=== PATIENT | male | born 1960 | race Caucasian/White ===

== ENCOUNTER 2018-04-02 11:36 | Emergency (ER) | payer BC ==
--- NOTE | 2018-04-02 14:16 | EDM.PDOCBH ---
ED HPI GENERAL MEDICAL PROBLEM - General Chief Complaint: Behavioral/Psych Stated Complaint: LAW ENFORCEMENT Time Seen by Provider: 04/02/18 11:50 Source of Information: Reports: Patient, RN Notes Reviewed History Limitations: Reports: No Limitations - History of Present Illness INITIAL COMMENTS - FREE TEXT/NARRATIVE: Patient is a 57 year old male who presents to the ED via [facility]. for a mental health check. The patient states that he has been depressed for quite a while now. He states that he has been on antidepressant medication, but ran out a few weeks ago, so he stopped taking it as he felt it was not working for him anyway. He was seeing Flora Watts at the [facility]. He states that this morning, him and his had an argument and before he left the house he stated " I'm leaving and if anything happens to me it will be your fault." He left the house in the vehicle. The Appliance Mechanic found him in a grove a trees, stuck in a tree row. He told her that she "should just leave him alone and let him freeze." The patient relates that over the last 4 years, him and his have had money issues. 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 He is feeling a lot of stress right now due to fights with his , and the money troubles. He denies hearing voices or seeing things that are not there. - Related Data Allergies Allergy/AdvReac Type Severity Reaction Status Date / Time No Known Allergies Allergy Verified 04/02/18 11:41 Past Medical History HEENT History: Reports: Impaired Vision Cardiovascular History: Reports: Hypertension Gastrointestinal History: Reports: Gastritis Genitourinary History: Reports: Renal Calculus Musculoskeletal History: Reports: Gout Psychiatric History: Reports: Anxiety, Depression, Suicidal Ideation - Past Surgical History GI Surgical History: Reports: Hernia Repair/Other Musculoskeletal Surgical History: Reports: Amputation Social & Family History - Family History Family Medical History: Noncontributory - Tobacco Use Smoking Status *Q: Never Smoker - Caffeine Use Caffeine Use: Reports: Coffee - Recreational Drug Use Recreational Drug Use: No ED ROS GENERAL - Review of Systems Review Of Systems: See Below Constitutional: Reports: No Symptoms HEENT: Reports: No Symptoms Respiratory: Reports: No Symptoms Cardiovascular: Reports: No Symptoms Endocrine: Reports: No Symptoms GI/Abdominal: Reports: No Symptoms : Reports: No Symptoms Musculoskeletal: Reports: No Symptoms Skin: Reports: No Symptoms Neurological: Reports: No Symptoms Psychiatric: Reports: Depression. Denies: Agitation, Anxiety, Hallucinations, Homicidal Ideation, Mood Lability, Suicidal Ideation Hematologic/Lymphatic: Reports: No Symptoms Immunologic: Reports: No Symptoms ED EXAM, BEHAVIORAL HEALTH - Physical Exam Exam: See Below Exam Limited By: No Limitations General Appearance: Alert, WD/WN, Mild Distress (pt is curled up in bed and laying on left side) Ears: Normal External Exam, Normal TMs Nose: Normal Inspection Throat/Mouth: Normal Inspection, Normal Oropharynx Head: Atraumatic, Normocephalic Neck: Normal Inspection Respiratory/Chest: No Respiratory Distress, Lungs Clear, Normal Breath Sounds, No Accessory Muscle Use, Chest Non-Tender Cardiovascular: Normal Peripheral Pulses, Regular Rate, Rhythm, No Murmur GI/Abdominal: Normal Bowel Sounds, Soft, Non-Tender, No Distention Extremities: Normal Inspection, Normal Capillary Refill Neurological: Alert, Normal Cognition, Normal Reflexes, Oriented x 3 Psychiatric: Alert, Normal Cognition, Oriented, Depressed Mood, Flat Affect, Tearful. No: Restless, Agitated, Uncooperative, Withdrawn, Homicidal Thoughts, Advent Delusions, Suicidal Plan, Suicidal Thoughts, Auditory Hallucinations, Visual Hallucinations, Threatening Behavior Skin Exam: Warm, Dry, Intact, Normal color, No rash EKG INTERPRETATION EKG Date: 04/02/18 Time: 12:03 Rhythm: NSR Rate (Beats/Min): 65 [place]: Normal P-Wave: Present QRS: Normal ST-T: Normal QT: Normal EKG Interpretation Comments: Reviewed with Dr. Nails COURSE, BEHAVIORAL HEALTH COMP - Course Vital Signs: Last Vital Signs Temp 98.6 F 04/02/18 11:41 Pulse 96 04/02/18 11:41 Resp 20 04/02/18 11:41 BP 146/84 H 04/02/18 11:41 Pulse Ox 98 04/02/18 11:41 Orders, Labs, Meds: Active Orders 24 hr Category Date Time Status EKG Documentation Completion [RC] STAT Care 04/02/18 11:59 Active Medical Clearance: 04/02/18 14:16 Pt presents to the ED for the evaluation of a mental health check. Upon talking with the patient I do not believe that what he said to his was intentional , and that he has no true intention to harm himself. I did consult Glendy rAroyo, our social problems specialist and she did visit with the patient and requested that [facility] take on his case. Nora from [facility] was in to see the patient and states that she gave him and his the crisis number in case he would need to talk to someone urgently. He does have a scheduled appointment on Sunday for evaluation through [facility]. He does not want to re-start any anti-depressive medications, but his was offered to him. The and patient feel safe enough to take him home today. It was Glendy's and Nora's impression that he is safe to go home with the plan discussed above. I also agree with them. Departure - Departure Time of Disposition: 14:22 Disposition: Home, Self-Care 01 Condition: Fair Clinical Impression: Mental and behavioral problem in adult - Discharge Information *PRESCRIPTION DRUG MONITORING PROGRAM REVIEWED*: No *COPY OF PRESCRIPTION DRUG MONITORING REPORT IN PATIENT BORIS: No Instructions: Suicidal Feelings: How to Help Yourself Referrals: PCP,None [Primary Care Provider] - Forms: ED Department Discharge Additional Instructions: You have been evaluated in the ED for a mental health check. You have an appointment with [facility] at 1pm on Sunday04-08-18. Please keep this appointment for follow-up for further management. You have been given the crisis number for [facility], please call this at anytime of the day to talk with someone. Please don't hesitate to return to the ED if your symptoms change or worsen. - My Orders Last 24 Hours: My Active Orders 04/02/18 11:59 EKG Documentation Completion [RC] STAT - Assessment/Plan Last 24 Hours: My Active Orders 04/02/18 11:59 EKG Documentation Completion [RC] STAT
== END 2018-04-02 14:36 | disposition home or self-care (01) ==
LOC: JD.ED 11:36
DX: F98.9 Unspecified behavioral and emotional disorders with onset usually occurring in childhood and adolescence (principal); F99 Mental disorder, not otherwise specified; I10 Essential (primary) hypertension
CPT/HCPCS: 93005; 93010; 99283; 99285-25

== ENCOUNTER 2023-04-01 11:01 | Emergency (ER) | payer BC ==
[2023-04-01 11:26] LABS: BASOPHILS ABSOLUTE AUTO 0.1 K/mm3 (0.0-0.2); BASOPHILS PERCENT AUTO 0.6 % (0.0-1.0); EOSINOPHILS ABSOLUTE AUTO 0.1 K/mm3 (0.0-0.4); EOSINOPHILS PERCENT AUTO 0.7 % (0.0-6.0); HEMATOCRIT 45.1 % (42.0-52.0); HEMOGLOBIN 16.5 gm/dl (14.0-18.0); IMMATURE GRAN ABSOLUTE AUTO 0.05 K/mm3 (0.00-0.05); IMMATURE GRAN PERCENT AUTO 0.5 % (0.0-0.4); LYMPHOCYTES ABSOLUTE AUTO 0.7 K/mm3 (1.0-4.8); LYMPHOCYTES PERCENT AUTO 6.3 % (24.0-44.0); MEAN CORPUSCULAR HEMOGLOBIN 34.8 pg (28.0-32.0); MEAN CORPUSCULAR HGB CONC 36.6 g/dl (32.0-36.0); MEAN CORPUSCULAR VOLUME 95.1 fl (83.0-99.0); MEAN PLATELET VOLUME 9.3 fl (9.4-12.4); MONOCYTES ABSOLUTE AUTO 0.8 K/mm3 (0.0-0.8); MONOCYTES PERCENT AUTO 7.8 % (0.0-8.0); NEUTROPHILS ABSOLUTE AUTO 8.8 K/mm3 (1.8-7.7); NEUTROPHILS PERCENT AUTO 84.1 % (41.0-71.0); PLATELET COUNT,PLT 229 K/mm3 (150-400); RED BLOOD CELL COUNT 4.74 M/mm3 (4.52-5.90); WHITE BLOOD CELL COUNT,WBC 10.46 K/mm3 (3.9-11.3)
[2023-04-01] MEDS: Aspirin 81 MG Tab.Chew PO ONE (11:29)
[2023-04-01] MEDS: Metoprolol Tartrate 5 MG/5 ML SDV ONE (11:30)
[2023-04-01] MEDS: Metoprolol Tartrate 2.5 MG in Sodium Chloride 0.9% 50 ML IV ONE (11:30)
[2023-04-01] MEDS: Metoprolol Tartrate 5 MG/5 ML SDV IVPUSH ONE (11:31)
[2023-04-01] MEDS: Sodium Chloride 0.9% 10 ML Syringe FLUSH PRN (11:35)
[2023-04-01 12:03] LABS: INFLUENZA A NAA NEGATIVE (NEGATIVE)
[2023-04-01 12:09] LABS: ALBUMIN 4.2 g/dl (3.4-5.0); ANION GAP 19.8 (5-15); BILIRUBIN TOTAL 1.2 mg/dL (0.2-1.0); BUN/CREATININE RATIO 13.8 (14-18); CALCIUM 9.1 mg/dL (8.5-10.1); CREATININE 1.3 mg/dL (0.7-1.3); EST CRCL DRUG DOSING (CG) 57.41 mL/min; POTASSIUM,K 3.8 mEq/L (3.5-5.1); PROTEIN TOTAL,TP 8.5 g/dl (6.4-8.2)
[2023-04-01 12:54] LABS: D-DIMER QUANTITATIVE 0.47 mg/L (0.19-0.50); INR 0.99; PROTHROMBIN TIME 10.6 SECONDS (9.7-12.0)
[2023-04-01] MEDS: Metoclopramide 10 MG/2 ML SDV IVPUSH ONE (13:42)
[2023-04-01] MEDS: Alum Hydrox/Mag Hydrox/Simeth 30 ML, Lidocaine 2% 15 ML PO ONE (13:43)
== END 2023-04-01 15:33 | disposition home or self-care (01) ==
LOC: JD.ED 11:01
DX: R07.9 Chest pain, unspecified (principal); I10 Essential (primary) hypertension; Z79.82 Long term (current) use of aspirin
CPT/HCPCS: 36415; 71045; 74176; 80053; 83690; 83880; 84484; 85025; 85379; 85610; 87502; 93005; 96374; 96375; 99285; A9270; J2765; J3490

== ENCOUNTER 2024-03-15 23:47 | Emergency (ER) | payer BC, MEDICARE ==
[2024-03-16] MEDS ORDERED: Sodium Chloride 0.9% 10 ML Syringe FLUSH PRN
[2024-03-16] MEDS: Ondansetron 4 MG/2 ML SDV IVPUSH ONE (00:07)
[2024-03-16] MEDS: Ketorolac 30 MG/ML SDV IVPUSH ONE (00:07)
[2024-03-16] MEDS: HYDROmorphone 0.5 MG/0.5 ML Syringe IVPUSH ONE (00:07)
[2024-03-16] MEDS: Sodium Chloride 0.9% 1,000 ML IV SCH (00:13)
[2024-03-16 00:15] LABS: BASOPHILS ABSOLUTE AUTO 0.1 K/mm3 (0.0-0.2); BASOPHILS PERCENT AUTO 0.5 % (0.0-1.0); EOSINOPHILS ABSOLUTE AUTO 0.3 K/mm3 (0.0-0.4); EOSINOPHILS PERCENT AUTO 2.3 % (0.0-6.0); HEMATOCRIT 41.9 % (42.0-52.0); HEMOGLOBIN 14.9 gm/dl (14.0-18.0); IMMATURE GRAN ABSOLUTE AUTO 0.07 K/mm3 (0.00-0.05); IMMATURE GRAN PERCENT AUTO 0.7 % (0.0-0.4); LYMPHOCYTES ABSOLUTE AUTO 1.2 K/mm3 (1.0-4.8); LYMPHOCYTES PERCENT AUTO 11.3 % (24.0-44.0); MEAN CORPUSCULAR HEMOGLOBIN 33.8 pg (28.0-32.0); MEAN CORPUSCULAR HGB CONC 35.6 g/dl (32.0-36.0); MEAN PLATELET VOLUME 9.6 fl (9.4-12.4); MONOCYTES ABSOLUTE AUTO 0.9 K/mm3 (0.0-0.8); NEUTROPHILS ABSOLUTE AUTO 8.3 K/mm3 (1.8-7.7); NEUTROPHILS PERCENT AUTO 77.2 % (41.0-71.0); PLATELET COUNT,PLT 209 K/mm3 (150-400); RED BLOOD CELL COUNT 4.41 M/mm3 (4.52-5.90); WHITE BLOOD CELL COUNT,WBC 10.68 K/mm3 (3.9-11.3)
[2024-03-16 00:41] LABS: A/G RATIO 0.9 (1-2); ALBUMIN 3.6 g/dl (3.4-5.0); ANION GAP 14.2 (5-15); BILIRUBIN TOTAL 0.7 mg/dL (0.2-1.0); BUN/CREATININE RATIO 13.1 (14-18); CALCIUM 8.7 mg/dL (8.5-10.1); CREATININE 1.6 mg/dL (0.7-1.3); EST CRCL DRUG DOSING (CG) 47.53 mL/min; POTASSIUM,K 4.2 mEq/L (3.5-5.1); PROTEIN TOTAL,TP 7.6 g/dl (6.4-8.2)
[2024-03-16 01:19] LABS: APPEARANCE,URINE SLT CLOUDY (Clear); BILIRUBIN,URINE NEGATIVE (Negative); COLOR,URINE YELLOW (Yellow); GLUCOSE,URINE NEGATIVE (Negative); KETONES,URINE NEGATIVE (Negative); LEUKOCYTE ESTERASE,URINE NEGATIVE (Negative); NITRITE,URINE NEGATIVE (Negative); OCCULT BLOOD,URINE 3+ (Negative); PROTEIN,URINE 1+ (Negative); UROBILINOGEN,URINE 0.2 (0.2-1.0)
[2024-03-16 01:36] LABS: BACTERIA,URINE FEW /hpf (FEW); EPITHELIAL CELLS,URINE 0-5 /hpf (0-5); HYALINE CASTS,URINE 0-5 /lpf (0-5); MUCUS,URINE RARE /hpf (FEW); RBC,URINE >100 /hpf (0-5); WBC,URINE 0-5 /hpf (0-5)
== END 2024-03-16 01:40 | disposition home or self-care (01) ==
LOC: JD.ED 23:47
DX: N13.2 Hydronephrosis with renal and ureteral calculous obstruction (principal); I10 Essential (primary) hypertension; Z79.899 Other long term (current) drug therapy; Z86.16 Personal history of COVID-19
CPT/HCPCS: 36415; 74176; 80053; 81001; 83690; 85025; 96361; 96374; 96375; 99284; J1885; J2405; J7030

== ENCOUNTER 2024-04-21 22:09 | Emergency (ER) | payer MEDICARE ==
[2024-04-21 22:47] LABS: APPEARANCE,URINE CLEAR (Clear); BASOPHILS ABSOLUTE AUTO 0.1 K/mm3 (0.0-0.2); BASOPHILS PERCENT AUTO 0.4 % (0.0-1.0); BILIRUBIN,URINE NEGATIVE (Negative); COLOR,URINE YELLOW (Yellow); EOSINOPHILS ABSOLUTE AUTO 0.2 K/mm3 (0.0-0.4); EOSINOPHILS PERCENT AUTO 1.2 % (0.0-6.0); GLUCOSE,URINE NEGATIVE (Negative); HEMATOCRIT 39.5 % (42.0-52.0); HEMOGLOBIN 13.9 gm/dl (14.0-18.0); IMMATURE GRAN ABSOLUTE AUTO 0.06 K/mm3 (0.00-0.05); IMMATURE GRAN PERCENT AUTO 0.5 % (0.0-0.4); KETONES,URINE NEGATIVE (Negative); LEUKOCYTE ESTERASE,URINE 1+ (Negative); LYMPHOCYTES ABSOLUTE AUTO 0.5 K/mm3 (1.0-4.8); LYMPHOCYTES PERCENT AUTO 4.4 % (24.0-44.0); MEAN CORPUSCULAR HEMOGLOBIN 34.5 pg (28.0-32.0); MEAN CORPUSCULAR HGB CONC 35.2 g/dl (32.0-36.0); MEAN PLATELET VOLUME 9.1 fl (9.4-12.4); MONOCYTES ABSOLUTE AUTO 0.7 K/mm3 (0.0-0.8); MONOCYTES PERCENT AUTO 5.5 % (0.0-8.0); NEUTROPHILS ABSOLUTE AUTO 10.8 K/mm3 (1.8-7.7); NITRITE,URINE NEGATIVE (Negative); OCCULT BLOOD,URINE 2+ (Negative); PH,URINE 5.5 (5.0-8.0); PLATELET COUNT,PLT 250 K/mm3 (150-400); PROTEIN,URINE 1+ (Negative); RED BLOOD CELL COUNT 4.03 M/mm3 (4.52-5.90); UROBILINOGEN,URINE 0.2 (0.2-1.0); WHITE BLOOD CELL COUNT,WBC 12.32 K/mm3 (3.9-11.3)
[2024-04-21 23:08] LABS: A/G RATIO 0.9 (1-2); ALBUMIN 3.7 g/dl (3.4-5.0); ANION GAP 15.5 (5-15); BILIRUBIN TOTAL 0.8 mg/dL (0.2-1.0); CALCIUM 8.8 mg/dL (8.5-10.1); CREATININE 2.3 mg/dL (0.7-1.3); EST CRCL DRUG DOSING (CG) 33.06 mL/min; POTASSIUM,K 4.5 mEq/L (3.5-5.1)
[2024-04-21] MEDS: Ondansetron 4 MG/2 ML SDV IVPUSH ONE (23:18)
[2024-04-21] MEDS: Ketorolac 30 MG/ML SDV IVPUSH ONE (23:18)
[2024-04-22 00:20] LABS: AMORPHOUS SEDIMENT,URINE FEW /hpf (NOT SEEN); BACTERIA,URINE FEW /hpf (FEW); EPITHELIAL CELLS,URINE 0-5 /hpf (0-5); MUCUS,URINE FEW /hpf (FEW); RBC,URINE 20-30 /hpf (0-5); WBC,URINE 20-30 /hpf (0-5)
[2024-04-22] MEDS: cefTRIAXone 1 GM Vial IVPUSH ONE (01:01)
[2024-04-22] MEDS: Sodium Chloride 0.9% 1,000 ML IV ONE ×2 (01:01→02:09)
[2024-04-22] MEDS ORDERED: Naloxone 0.4 MG/ML SDV IVPUSH PRN (01:54)
[2024-04-22] MEDS: Morphine 4 MG/ML Syringe IVPUSH PRN (01:58)
== END 2024-04-22 13:43 ==
LOC: JD.ED 22:09
DX: N13.2 Hydronephrosis with renal and ureteral calculous obstruction (principal); N39.0 Urinary tract infection, site not specified; N17.9 Acute kidney failure, unspecified; I10 Essential (primary) hypertension; Z86.16 Personal history of COVID-19; Z79.899 Other long term (current) drug therapy
CPT/HCPCS: 36415; 74176; 80053; 81001; 85025; 96361; 96374; 96375; 99285; J0696; J1885; J2270; J2405; J7030